=== PATIENT | female | born 1980 | race Two or more races ===

== ENCOUNTER 2017-02-22 10:05 | Observation (INO) | payer MEDICAID ==
[2017-02-22] MEDS ORDERED: PREN-96 PO (10:55)
== END 2017-02-22 12:25 | disposition home or self-care (01) | DRG 566 ==
LOC: LDRP 10:05
PROVIDERS: ADMIT Obstetrics & Gynecology; ATTEND Obstetrics & Gynecology
DX: O48.0 Post-term pregnancy (principal); Z3A.40 40 weeks gestation of pregnancy
CPT/HCPCS: 59025; 76818; 81002; G0378

== ENCOUNTER 2017-02-24 06:40 | Inpatient (IN) | payer MEDICAID ==
[~2017-02-24] VITALS: Ht 154.9 cm; Wt 74.4 kg
[~2017-02-24 06:40] MED LIST: PREN-96 PO
[2017-02-24] MEDS ORDERED: LACT. RINGERS/OXYTOCIN 20UNITS 1,000 ML IV SCH ×2 (07:08→13:01)
[2017-02-24] MEDS ORDERED: NALBUPHINE HCL 10 MG/1ml INJECTION IV PRN (07:15)
[2017-02-24] MEDS ORDERED: CARBOPROST TROMETHAMINE 250 MCG/1ML VIAL IM PRN (07:15)
[2017-02-24] MEDS ORDERED: DERMOPLAST 60ML BOTTLE TOP PRN (07:15)
[2017-02-24] MEDS ORDERED: LIDOCAINE 1% HCL (LOCAL ANESTH.) INJ 20ML MDV IJ ONE (07:15)
[2017-02-24] MEDS ORDERED: METHYLERGONOVINE MALEATE 0.2 MG/ML AMP IM PRN (07:15)
[2017-02-24] MEDS ORDERED: WITCH HAZEL-GLYCERIN PAD TOP PRN (07:15)
[2017-02-24] MEDS ORDERED: PHISODERM TOP SOLN 240ML BTL TOP PRN (07:15)
[2017-02-24] MEDS ORDERED: LIDOCAINE 2%HCL (LOCAL ANESTH.) INJ 20ML MDV IJ ONE (07:15)
[2017-02-24 07:33] LABS: Basophils # (auto) 0.1 uL; Eosinophils # (auto) 0.1 uL; Hematocrit 38.2 % (36.0-46.0); Hemoglobin 12.8 g/dL (12.2-16.2); Lymphocytes % (auto) 22.9 % (10.0-50.0); Mean Corpuscular Hemoglobin 29.4 pg (28.0-32.0); Mean Corpuscular Hgb Conc. 33.4 g/dL (32.0-36.0); Mean Corpuscular Volume 88.1 fL (80.0-100.0); Monocytes # (auto) 0.5 uL; Monocytes % (auto) 6.3 % (0.0-12.0); Neutrophils # (auto) 5.9 uL; Neutrophils % (auto) 68.8 % (37.0-80.0); Nucleated Red Blood Cells % 0.1 %; Platelet Count (auto) 180 10^3/uL (140-450); Red Blood Cells 4.34 10^6/uL (4.0-5.20); White Blood Cell 8.6 10^3/uL (4.4-10.8)
[2017-02-24 07:48] LABS: INR 0.86 (0.9-1.15); Partial Thromboplastin Time 25.8 sec (22.64-33.71); Prothrombin Time 9.4 sec (9.37-12.3)
[2017-02-24 07:55] LABS: Albumin 2.4 g/dL (3.4-5.0); Bilirubin, Total 0.3 mg/dL (0.2-1.0); Calcium 8.4 mg/dL (8.5-10.1); Potassium 3.6 mmol/L (3.5-5.1); Total Protein 6.6 g/dL (6.4-8.2)
[2017-02-24 08:19] LABS: Urine Bacteria NONE SEEN /hpf (None Seen); Urine Blood Negative /uL (Negative); Urine Specific Gravity 1.008 (1.001-1.035); Urine WBC 1 /hpf (0 - 5)
[2017-02-24] MEDS ORDERED: MORPHINE SULF(PF) 0.5MG/ML 10ML VIAL ONE (11:40)
[2017-02-24] MEDS ORDERED: fentaNYL CITRATE 100 MCG/2 ML VL ONE (11:40)
[2017-02-24] MEDS ORDERED: ceFAZolin 1GM VL ONE (12:31)
[2017-02-24] MEDS ORDERED: OXYTOCIN 10 UNIT/ML 10ML VIAL ONE (12:31)
[2017-02-24] MEDS ORDERED: FUROSEMIDE 20 MG/2 ML VIAL ONE (12:46)
[2017-02-24] MEDS ORDERED: MORPHINE SULF INJ 2 MG/ML SYRINGE 1ML IV PRN (13:15)
[2017-02-24] MEDS ORDERED: ONDANSETRON HCL 4 MG/2 ML VIAL IV PRN (13:15)
[2017-02-24] MEDS ORDERED: HYDROmorphone HCL 2 MG/ML VL IV PRN (13:15)
[2017-02-24 13:55] VITALS: BP 116/79
[2017-02-24 16:00] VITALS: BP 118/69
[2017-02-24] MEDS: LACTATED RINGER'S 1,000 ML IV SCH ×3 (16:30→23:08)
[2017-02-24] MEDS: KETOROLAC TROMETH 30 MG/ML 1ML VIAL IV PRN (16:51)
[2017-02-24 17:08] VITALS: BP 125/77
[2017-02-24] MEDS ORDERED: INFLUENZA QUAD 2017-2018 0.5 ML SYRG IM ONE (18:00)
[2017-02-24 20:00] VITALS: BP 125/78
[2017-02-24 20:25] LABS: Basophils # (auto) 0 uL; Basophils % (auto) 0.1 % (0.0-2.0); Eosinophils # (auto) 0 uL; Hematocrit 32.5 % (36.0-46.0); Hemoglobin 10.7 g/dL (12.2-16.2); Lymphocytes # (auto) 1.9 uL; Lymphocytes % (auto) 9.9 % (10.0-50.0); Mean Corpuscular Hemoglobin 29.3 pg (28.0-32.0); Mean Corpuscular Hgb Conc. 32.9 g/dL (32.0-36.0); Mean Corpuscular Volume 89.2 fL (80.0-100.0); Monocytes % (auto) 5.3 % (0.0-12.0); Neutrophils # (auto) 15.8 uL; Neutrophils % (auto) 84.7 % (37.0-80.0); Platelet Count (auto) 184 10^3/uL (140-450); Red Blood Cells 3.65 10^6/uL (4.0-5.20); Red Cell Distribution Width 13.9 % (11.8-14.3); White Blood Cell 18.7 10^3/uL (4.4-10.8)
[2017-02-24] MEDS: ceFAZolin 1GM/50ML 50 ML IV SCH (20:35)
[2017-02-24] MEDS ORDERED: metroNIDAZOLE 500MG/100ML 100 ML IV ONE (23:44)
[2017-02-25] VITALS (17 sets, daily range): BP systolic 98–122; BP diastolic 55–80
[2017-02-25] MEDS ORDERED: metroNIDAZOLE 500MG/100ML 100 ML IV SCH
[2017-02-25] MEDS: KETOROLAC TROMETH 30 MG/ML 1ML VIAL IV PRN (00:53)
[2017-02-25] MEDS: ceFAZolin 1GM/50ML 50 ML IV SCH (03:40)
[2017-02-25] MEDS ORDERED: LACTATED RINGER'S 1,000 ML IV ONE (06:30)
[2017-02-25 06:47] LABS: Basophils # (auto) 0 uL; Basophils % (auto) 0.2 % (0.0-2.0); Eosinophils # (auto) 0 uL; Eosinophils % (auto) 0.2 % (0.0-7.0); Hematocrit 25.9 % (36.0-46.0); Hemoglobin 8.7 g/dL (12.2-16.2); Lymphocytes # (auto) 1.4 uL; Lymphocytes % (auto) 11.9 % (10.0-50.0); Mean Corpuscular Hgb Conc. 33.7 g/dL (32.0-36.0); Mean Corpuscular Volume 89.1 fL (80.0-100.0); Monocytes # (auto) 0.8 uL; Monocytes % (auto) 7.1 % (0.0-12.0); Neutrophils # (auto) 9.5 uL; Neutrophils % (auto) 80.6 % (37.0-80.0); Platelet Count (auto) 155 10^3/uL (140-450); Red Blood Cells 2.91 10^6/uL (4.0-5.20); White Blood Cell 11.8 10^3/uL (4.4-10.8)
[2017-02-25] MEDS ORDERED: PIPERACILLIN-TAZOB 3.375GM 100 ML IV SCH (07:00)
[2017-02-25] MEDS ORDERED: HYDROcodone-ACET 5/325MG TAB PO PRN (07:30)
[2017-02-25] MEDS ORDERED: BISACODYL 10 MG RECT SUPP PR PRN (07:30)
[2017-02-25] MEDS: LACTATED RINGER'S 1,000 ML IV SCH ×3 (07:36→23:45)
[2017-02-25] MEDS: FERROUS SULFATE 325 MG TAB PO SCH ×3 (07:57→17:44)
[2017-02-25] MEDS: HYDROcodone-ACET 5/325MG TAB PO PRN ×2 (08:12→20:43)
[2017-02-25] MEDS: DOCUSATE CALCIUM 240 MG CAP PO SCH (10:00)
[2017-02-25] MEDS: DOCUSATE SOD 100 MG CAP PO SCH ×2 (10:00→22:08)
[2017-02-25] MEDS: SIMETHICONE 80 MG CHEWABLE TABLET PO SCH ×3 (11:51→22:08)
[2017-02-25] MEDS: PIPERACILLIN-TAZOB 3.375GM 100 ML IV SCH ×2 (14:57→20:44)
[2017-02-25] MEDS: IBUPROFEN 800 MG TAB PO PRN (15:03)
[2017-02-25] MEDS ORDERED: ceFAZolin 1GM/50ML 50 ML IV SCH ×2 (20:00→22:00)
[2017-02-26] VITALS (9 sets, daily range): BP systolic 105–133; BP diastolic 57–78
[2017-02-26] MEDS: PIPERACILLIN-TAZOB 3.375GM 100 ML IV SCH (02:57)
[2017-02-26] MEDS: IBUPROFEN 800 MG TAB PO PRN ×3 (03:02→21:33)
[2017-02-26] MEDS: SIMETHICONE 80 MG CHEWABLE TABLET PO SCH ×4 (05:49→21:32)
[2017-02-26] MEDS: LACTATED RINGER'S 1,000 ML IV SCH ×2 (05:50→19:35)
[2017-02-26] MEDS: FERROUS SULFATE 325 MG TAB PO SCH ×3 (07:53→18:05)
[2017-02-26] MEDS: DOCUSATE CALCIUM 240 MG CAP PO SCH (10:00)
[2017-02-26] MEDS: DOCUSATE SOD 100 MG CAP PO SCH ×2 (10:00→21:32)
[2017-02-26] MEDS: HYDROcodone-ACET 5/325MG TAB PO PRN ×2 (10:00→18:05)
[2017-02-26] MEDS: PIPERACILLIN-TAZOB 3.375GM 50 ML IV SCH ×2 (13:38→19:21)
[2017-02-26] MEDS: SODIUM CHLOR 0.9% PF (SALINE LOCK) 10ML VIAL IV SCH ×2 (19:34→22:40)
[2017-02-27] VITALS (7 sets, daily range): BP systolic 109–134; BP diastolic 63–83
[2017-02-27] MEDS: LACTATED RINGER'S 1,000 ML IV SCH (00:19)
[2017-02-27] MEDS: PIPERACILLIN-TAZOB 3.375GM 50 ML IV SCH ×4 (01:15→19:34)
[2017-02-27] MEDS: IBUPROFEN 800 MG TAB PO PRN ×2 (05:35→19:34)
[2017-02-27] MEDS: SIMETHICONE 80 MG CHEWABLE TABLET PO SCH ×4 (05:35→21:18)
[2017-02-27] MEDS: SODIUM CHLOR 0.9% PF (SALINE LOCK) 10ML VIAL IV SCH ×3 (07:27→22:00)
[2017-02-27] MEDS ORDERED: INFLUENZA QUAD 2017-2018 0.5 ML SYRG IM ONE (08:00)
[2017-02-27] MEDS: FERROUS SULFATE 325 MG TAB PO SCH ×3 (09:41→18:05)
[2017-02-27] MEDS: DOCUSATE SOD 100 MG CAP PO SCH ×2 (09:41→21:18)
[2017-02-27] MEDS: DOCUSATE CALCIUM 240 MG CAP PO SCH (09:41)
[2017-02-27 14:36] LABS: Basophils # (auto) 0 uL; Basophils % (auto) 0.3 % (0.0-2.0); Eosinophils # (auto) 0.3 uL; Eosinophils % (auto) 2.7 % (0.0-7.0); Hematocrit 25.6 % (36.0-46.0); Hemoglobin 8.4 g/dL (12.2-16.2); Lymphocytes # (auto) 1.8 uL; Lymphocytes % (auto) 19.5 % (10.0-50.0); Mean Corpuscular Hemoglobin 29.8 pg (28.0-32.0); Mean Corpuscular Hgb Conc. 32.9 g/dL (32.0-36.0); Mean Corpuscular Volume 90.7 fL (80.0-100.0); Monocytes # (auto) 0.5 uL; Neutrophils # (auto) 6.7 uL; Neutrophils % (auto) 72.5 % (37.0-80.0); Platelet Count (auto) 215 10^3/uL (140-450); Red Blood Cells 2.82 10^6/uL (4.0-5.20); Red Cell Distribution Width 13.8 % (11.8-14.3); White Blood Cell 9.2 10^3/uL (4.4-10.8)
[2017-02-28] MEDS: PIPERACILLIN-TAZOB 3.375GM 50 ML IV SCH (01:08)
[2017-02-28 04:00] VITALS: BP 112/70
[2017-02-28] MEDS: SODIUM CHLOR 0.9% PF (SALINE LOCK) 10ML VIAL IV SCH (06:19)
[2017-02-28] MEDS: SIMETHICONE 80 MG CHEWABLE TABLET PO SCH ×2 (06:20→12:27)
[2017-02-28 07:30] VITALS: BP 123/70
[2017-02-28] MEDS: FERROUS SULFATE 325 MG TAB PO SCH ×2 (08:00→12:27)
[2017-02-28] MEDS: DOCUSATE SOD 100 MG CAP PO SCH (08:53)
[2017-02-28] MEDS: DOCUSATE CALCIUM 240 MG CAP PO SCH (08:53)
[2017-02-28 11:00] VITALS: BP 136/87
== END 2017-02-28 15:40 | disposition home or self-care (01) | DRG 540 ==
LOC: LDRP 06:40 → OBSVTOIN 06:40 → LDRP 07:09
PROVIDERS: ADMIT Obstetrics & Gynecology; ATTEND Obstetrics & Gynecology
PROC: 10D00Z1 Extraction of Products of Conception, Low, Open Approach (ICD-10-PCS; principal; 2017-02-24 11:48)
DX: O64.0XX0 Obstructed labor due to incomplete rotation of fetal head, not applicable or unspecified (principal); O86.4 Pyrexia of unknown origin following delivery; O76 Abnormality in fetal heart rate and rhythm complicating labor and delivery; O69.81X0 Labor and delivery complicated by cord around neck, without compression, not applicable or unspecified; O34.211 Maternal care for low transverse scar from previous cesarean delivery; Z37.0 Single live birth; Z3A.40 40 weeks gestation of pregnancy; Z83.3 Family history of diabetes mellitus; Z23 Encounter for immunization
CPT/HCPCS: 36415; 59025; 80053; 81001; 81002; 85025; 85610; 85730; 86850; 86900; 86901; 96365; 96366; 96372; 96375; J0690; J1885; J2543; J2590; J3490